=== PATIENT | female | born 2000 | race African-American/Black ===

== ENCOUNTER 2024-02-26 00:50 | Inpatient (IN) | payer BC, OTHER ==
[~2024-02-26] VITALS: Ht 172.7 cm; Wt 58.1 kg
[2024-02-26 00:55] VITALS: BP 105/67; PULSE 104; RESP 20; TEMP 96.2; O2SAT 100
[2024-02-26 02:07] LABS: APPEARANCE,URINE CLOUDY (CLEAR); BILIRUBIN,URINE NEGATIVE (NEGATIVE); BLOOD, URINE 3+ (NEGATIVE); COLOR,URINE YELLOW (YELLOW); LEUKOCYTE ESTERASE ,URINE NEGATIVE (NEGATIVE); NITRITE, URINE NEGATIVE (NEGATIVE); PROTEIN,URINE 2+ (NEGATIVE); UGLUCOSE NEGATIVE (NEGATIVE)
[2024-02-26] MEDS: NACL 0.9% 1,000 ML IV ONE ×2 (02:08→03:09)
[2024-02-26 02:12] LABS: BACTERIA,URINE >30 (MANY) /HPF (None Seen); MUCUS,URINE 1+ /LPF (None Seen); RBC,URINE >20 (MANY) /HPF (0-5); SQUAMOUS EPITHELIAL CELL,UR 0-3 (FEW) /LPF (0-3 (FEW))
[2024-02-26] MEDS: ONDANSETRON 4 MG/2 ML VIAL IVP ONE (02:14)
[2024-02-26 02:23] LABS: AMPHETAMINE, URINE NEGATIVE ng/ml (NEG <=1000); BARBITURATE, URINE NEGATIVE ng/ml (NEG <=200); BENZODIAZEPINE, URINE NEGATIVE ng/mL (NEG <=200); CANNABINOID, URINE NEGATIVE ng/mL (NEG <=50); COCAINE, URINE NEGATIVE ng/mL (NEG <=300); OPIATE, URINE NEGATIVE ng/mL (NEG <=2000); PHENCYCLIDINE SCREEN,URINE NEGATIVE ng/mL (NEG <=25)
[2024-02-26 02:28] LABS: BASOPHILS # (AUTO) 0.1 K/uL (0.00-0.22); BASOPHILS % (AUTO) 0.4 % (0.0-2.0); HEMATOCRIT 33.4 % (36-48); HEMOGLOBIN 10.8 g/dL (12.0-16.0); LYMPHOCYTES # (AUTO) 0.5 K/uL (2.5-16.5); LYMPHOCYTES % (AUTO) 3.4 % (20.5-51.1); MEAN CORPUSCULAR HEMOGLOBIN 24 pg (27-31); MEAN CORPUSCULAR HGB CONC 32 g/dL (33-37); MEAN CORPUSCULAR VOLUME 75.2 fL (80-94); MONOCYTES # (AUTO) 0.5 K/uL (0.8-1.0); MONOCYTES % (AUTO) 3.3 % (1.7-9.3); NEUTROPHILS # (AUTO) 14.1 K/uL (1.8-7.7); NEUTROPHILS % (AUTO) 92.9 % (42.2-75.2); PLATELET COUNT (AUTO) 291 K/uL (140-450); RED BLOOD CELL COUNT(AUTO) 4.44 MIL/uL (4.20-5.40); RED CELL DISTRIBUTION WIDTH 15.1 % (11.6-13.7); WHITE BLOOD COUNT (AUTO) 15.1 K/uL (4.8-10.8)
[2024-02-26 02:41] LABS: ANION GAP 17.6 (8-16); CALCIUM 9.5 mg/dL (8.5-10.1); CARBON DIOXIDE 21.9 mmol/L (21-32); CREATININE 0.9 mg/dL (0.6-1.3); POTASSIUM 3.5 mmol/L (3.5-5.1)
[2024-02-26] MEDS: KETOROLAC 30 MG/ML VIAL IVP ONE (02:42)
[2024-02-26] MEDS: LORazepam 2 MG/ML VIAL IVP ONE (02:42)
[2024-02-26 02:48] LABS: ALBUMIN 4.2 g/dL (3.4-5.0); BILIRUBIN,DIRECT 0.1 mg/dL (0.0-0.3); TOTAL BILIRUBIN 0.7 mg/dL (0.0-1.0); TOTAL PROTEIN, SERUM 7.7 g/dL (6.4-8.2)
[2024-02-26 04:36] VITALS: O2SAT 100
[2024-02-26] MEDS ORDERED: DOCUSATE SODIUM 100 MG GELCAP PO PRN (06:20)
[2024-02-26] MEDS ORDERED: ACETAMINOPHEN 325 MG TAB PO PRN (06:20)
[2024-02-26] MEDS ORDERED: guaiFENesin DM 200/20 MG-10 ML 10 ML UDC PO PRN (06:20)
[2024-02-26] MEDS ORDERED: ZOLPIDEM 5 MG TAB PO PRN (06:20)
[2024-02-26] MEDS ORDERED: POTASSIUM CHLORIDE 10 MEQ TABER PO PRN (06:20)
[2024-02-26] MEDS: metroNIDAZOLE 500 MG/NS PREMIX 100 ML IV ONE (06:32)
[2024-02-26] MEDS: CIPROFLOXACIN 400 MG/200ML-D5W 200 ML IV ONE (06:45)
[2024-02-26] MEDS: NACL 0.9% 1,000 ML IV SCH ×2 (07:29→18:09)
[2024-02-26 07:35] LABS: LACTIC ACID 1.4 mmol/L (0.4-2.0)
[2024-02-26 08:09] VITALS: O2SAT 99
[2024-02-26] MEDS: PANTOPRAZOLE 40 MG TABEC PO SCH (09:12)
[2024-02-26] MEDS: ONDANSETRON 4 MG/2 ML VIAL IM/IVP PRN (10:47)
[2024-02-26 12:11] VITALS: O2SAT 100
[2024-02-26 16:00] LABS: THYROID STIMULATING HORMONE 0.74 uIU/mL (0.34-3.74)
[2024-02-26] MEDS: POTASSIUM CHL 20MEQ/D5-NS 1,000 ML IV SCH (16:22)
[2024-02-26] MEDS: METOCLOPRAMIDE 10 MG/2 ML INJ VIAL IVP SCH (17:05)
[2024-02-26 17:53] VITALS: BP 80/42; PULSE 68; RESP 18; TEMP 97.6; O2SAT 98
[2024-02-26 20:00] VITALS: BP 95/44; PULSE 88; RESP 18; TEMP 98.2; O2SAT 98
[2024-02-26] MEDS: PANTOPRAZOLE 40 MG INJ VIAL IVP SCH (20:24)
[2024-02-26] MEDS: AMITRIPTYLINE 10 MG TAB PO SCH (20:25)
[2024-02-27] VITALS: BP 133/45; PULSE 50; RESP 18; TEMP 97.8; O2SAT 98
[2024-02-27 04:00] VITALS: BP 109/49; PULSE 58; RESP 18; TEMP 97; O2SAT 96
[2024-02-27] MEDS: HYDROcodone/APAP 7.5/325 MG 1 TAB PO PRN (05:54)
[2024-02-27 06:53] LABS: BASOPHILS % (AUTO) 0.4 % (0.0-2.0); EOSINOPHILS % (AUTO) 0.3 % (0.0-4.0); HEMATOCRIT 27.9 % (36-48); LYMPHOCYTES % (AUTO) 25.8 % (20.5-51.1); MEAN CORPUSCULAR HEMOGLOBIN 24 pg (27-31); MEAN CORPUSCULAR HGB CONC 32 g/dL (33-37); MEAN CORPUSCULAR VOLUME 74.9 fL (80-94); MONOCYTES # (AUTO) 0.7 K/uL (0.8-1.0); MONOCYTES % (AUTO) 8.4 % (1.7-9.3); NEUTROPHILS # (AUTO) 5.1 K/uL (1.8-7.7); NEUTROPHILS % (AUTO) 65.1 % (42.2-75.2); PLATELET COUNT (AUTO) 219 K/uL (140-450); RED BLOOD CELL COUNT(AUTO) 3.72 MIL/uL (4.20-5.40); WHITE BLOOD COUNT (AUTO) 7.9 K/uL (4.8-10.8)
[2024-02-27 07:15] LABS: ANION GAP 10.6 (8-16); CALCIUM 7.9 mg/dL (8.5-10.1); CARBON DIOXIDE 25.1 mmol/L (21-32); CREATININE 0.8 mg/dL (0.6-1.3); POTASSIUM 3.7 mmol/L (3.5-5.1); TOTAL BILIRUBIN 0.7 mg/dL (0.0-1.0); TOTAL PROTEIN, SERUM 5.6 g/dL (6.4-8.2)
[2024-02-27 08:00] VITALS: BP 126/75; PULSE 62; PULSE 88; RESP 17; RESP 18; TEMP 98.7; O2SAT 100
[2024-02-27] MEDS: LORazepam 0.5 MG TAB PO SCH (08:53)
[2024-02-27] MEDS ORDERED: SULF-59 PO (09:23)
[2024-02-27] MEDS ORDERED: ONDA-188 SL (09:23)
[2024-02-27 16:00] VITALS: BP 105/85; PULSE 70; RESP 18; TEMP 98.9; O2SAT 100
[2024-02-27 16:58] VITALS: BP 110/88; PULSE 72; RESP 17; TEMP 98
[2024-02-27] MEDS ORDERED: AMITRIPTYLINE 10 MG TAB PO SCH (21:00)
== END 2024-02-27 17:30 | disposition home or self-care (01) | DRG 761 ==
LOC: MED 00:50 → MMU 06:18 → MTU 17:14
PROVIDERS: ADMIT Student in an Organized Health Care Education/Training Program; ATTEND Student in an Organized Health Care Education/Training Program
DX: N92.5 Other specified irregular menstruation (principal); F41.9 Anxiety disorder, unspecified; N30.90 Cystitis, unspecified without hematuria; Z79.899 Other long term (current) drug therapy
CPT/HCPCS: 36415; 80048; 80053; 80076; 80305; 81001; 82728; 83540; 83605; 83690; 84443; 85025; 87040; 87081; 87086; 96365; 96375; 99285; C9113; J0744; J1885; J2060; J2405; J2765; J3490